=== PATIENT | female | born 1950 | race Caucasian/White ===

== ENCOUNTER 2016-12-08 01:55 | Observation (INO) | payer MEDICARE, MEDICAID ==
[2016-12-08] VITALS (10 sets, daily range): BP systolic 108–130; BP diastolic 64–77; PULSE 66–86; RESP 18–20; TEMP 96.2–97.8; O2SAT 95–99
[~2016-12-08] VITALS: Ht 172.7 cm; Wt 125.7 kg
[~2016-12-08 01:55] MED LIST: AMLO5 PO; COUM2TAB PO; FERR324T4 PO; FOLI400T PO; FURO40TA PO; ZOCO40TA PO
[2016-12-08] MEDS ORDERED: SODIUM CHLORIDE 0.9% FLUSH 10 ML FLUSH PRN (02:45)
[2016-12-08] MEDS ORDERED: METO-488 PO (04:39)
[2016-12-08] MEDS ORDERED: BUME0.5T PO (04:40)
[2016-12-08 05:00] LABS: CREATINE KINASE 47 U/L (26-192)
[2016-12-08] MEDS: PRAVASTATIN SOD 40 MG TAB PO SCH (08:39)
[2016-12-08] MEDS: FOLIC ACID 1 MG TAB PO SCH (08:39)
[2016-12-08] MEDS: FERROUS SULFATE 325 MG (65 MG ELEMENTAL IRON) TAB PO SCH (08:40)
[2016-12-08] MEDS: amLODIPine BESYLATE 5 MG TAB PO SCH (08:40)
--- NOTE | 2016-12-08 09:41 | HHI.HP ---
[facility] Unknown Admission Diagnosis Chest pain Diagnoses: (1) Epigastric pain Diagnosis: Principal (2) CHF (congestive heart failure) Diagnosis: Principal (3) A-fib Diagnosis: Principal (4) Subtherapeutic anticoagulation Diagnosis: Principal (5) Leg swelling Diagnosis: Principal (6) Hypokalemia Diagnosis: Principal Chief Complaint: body tight, dizzy Travel History International Travel<30 Days: No Contact w/Intl Traveler <30 Da: No Traveled to Known Affected Are: No History of Present Illness Written by Xochitl Will PA-C acting as scribe for Dr. Da Silva on 12/08/16 at ~ 0930. 66 year old female with history of coronary artery disease and hypertension was admitted to chest pain center. The patient is Urdu- speaking and an official concrete puddler was utilized. Her daughter who speaks Slovak also assists with history. The patient states that yesterday her body felt tight and she was dizzy and she had pain in her head and stomach and it radiated upward. She points to the lower chest/epigastric region as the site of pain stating it radiated to the back and she had a little bit of shortness of breath at that time. She denies any shortness of breath currently. She states the pain has been coming and going. She did not take anything for the pain at home. She states the feeling in the pit of her stomach is similar to prior [place]. States her headache is better now as she was given Dilaudid in the ED. She has chronic swelling in her legs. States the left leg is bothersome although denies pain. The patient recently moved from [place] 2 months ago and does not have a local lead java developer architect but she underwent CABG in February 2016 with 3 stents placed a couple of years ago. Apparently the patient was placed on warfarin for an issue with her leg but it is unclear if she actually had a DVT although daughter states she did have US performed in [place]. The patient has atrial fibrillation noted on EKGs but denies known history of this. Since the bypass patiently only admits to some soft tissue pain above the breast, no other chest pain. Denies any dysuria, diarrhea, constipation. Review of Systems Except as stated in HPI: all other systems reviewed are Neg Past Family Social History Past Medical History CAD Hypertension Anemia Possible lower extremity DVT Chronic leg swelling Past Surgical History CABG 02/2016 Cardiac stents x 3 Knee replacements 2-3 years ago Reported Medications Bumetanide 0.5 Mg Tab 0.5 Mg PO DAILY Metoprolol Succinate/HCTZ 50-12.5 ER 1 Tab Tab 1 Tab PO DAILY Furosemide 40 Mg Tab 40 Mg PO DAILY Folic Acid 400 Mcg Tab 400 Mcg PO DAILY Ferrous Sulfate DR (Ferrous Sulfate) 324 Mg Tabdr 324 Mg PO DAILY Zocor (Simvastatin) 40 Mg Tab 40 Mg PO DAILY Coumadin (Warfarin) 2 Mg Tab 2 Mg PO DAILY Norvasc (Amlodipine Besylate) 5 Mg Tab 5 Mg PO DAILY Allergies: Coded Allergies: No Known Allergies (Unverified , 12/07/16) Family History Father of GA in his 80's. Family history of DM, HTN, Cancer Social History Denies alcohol use, tobacco use, or illicit drug use. Physical Exam Vital Signs Vital Signs Date Time Temp Pulse Resp B/P Pulse Ox O2 Delivery O2 Flow Rate FiO2 12/08/16 08:24 97 Nasal Cannula 2.00 12/08/16 08:00 96.2 70 18 108/64 99 12/08/16 04:00 96.9 70 20 130/77 97 12/08/16 03:45 99 Nasal Cannula 4.00 12/08/16 02:15 70 Physical Exam GENERAL: This is a pleasant morbidly obese well-developed patient in no apparent distress. SKIN: No rashes, ecchymoses or lesions. Warm and dry. HEAD: Atraumatic. Normocephalic. EYES: No scleral icterus. No injection or drainage. CARDIOVASCULAR: Normal rate with irregularly irregular rhythm without murmurs, gallops, or rubs. RESPIRATORY: Clear to auscultation. Breath sounds equal bilaterally. No wheezes , rales, or rhonchi. GASTROINTESTINAL: Tender over epigastric and suprapubic region. Abdomen soft, nondistended. No guarding. MUSCULOSKELETAL: Trace edema right lower extremity. 1+ edema left lower extremity. Negative Homans sign bilaterally. NEUROLOGICAL: Awake and alert. Motor grossly within normal limits. Normal speech. PSYCHIATRIC: Normal mood; slightly flattened affect. Laboratory Laboratory Tests Test 12/08/16 03:55 Total Creatine Kinase 47 Troponin I LESS THAN 0.02 Imaging Last 24 hours Impressions Lower Extremity Ultrasound 12/08/16 0000 Signed Impressions: Service Date/Time: Thursday, December 08, 2016 10:02 - CONCLUSION: No evidence of DVT. Danial Maradiaga MD Assessment and Plan Assessment and Plan 66-year-old female with: Epigastric pain: Patient reports epigastric tenderness radiating to the back states the feeling in the "pit" of her stomach feels similar to prior [place]. EKGs 4 personally interpreted with atrial fibrillation rate controlled, incomplete right bundle branch block, prolonged QT interval; septal T wave changes likely related to to incomplete right bundle branch block. No other ischemic changes noted. Deep q waves in lead III on first EKG. Aorta CTA negative for dissection. H/o CABG 02/2016 in [place]. -Nitro prn if has chest pain -Pepcid 20 bid with Maalox as needed for possible dyspepsia. (Received viscous lidocaine, Maalox, and 40 Protonix IV in the ED). -Telemetry -Cardiology consult appreciated. Stress test pending. CHF: Chest x-ray personally interpreted with cardiomegaly and pulmonary vascular congestion. BNP 493. Lungs clear. H/o CABG 2015. -Continue home Lasix -Echo ordered A.Fib: Rate controlled on EKGs. Patient denies knowledge of having a history of A. fib. -Telemetry -Continue warfarin pending results of stress test. INR subtherapeutic. Pharmacy consulted to monitor. - continue therapeutic Lovenox. Leg swelling: Bilateral since CABG. Patient apparently had an ultrasound in [place] but it is unclear what that showed. D-dimer elevated. -Perform Doppler ultrasound bilaterally. Negative. Hypokalemia: 3.3. Given 40 mEq po KCl in ED. -Monitor BMP Chronic medical problems include hypertension, anemia, CAD: Continue home medications. DVT prophylaxis: On Lovenox, coumadin Patient is not chest pain center appropriate. Will be treated as regular medical patient. Discussed Condition With Pt, family, Dr. Acosta This note was transcribed by suhail Will. I, Dr. Edouard Da Silva personally performed the history, physical exam, and medical decision making; and confirmed the accuracy of the information in the transcribed note. Authenticated by Dr. Edouard Da Silva on 12/08/16 at 16:00. Xochitl Will December 08, 2016 09:41 Edouard Da Silva DO December 08, 2016 16:00
[2016-12-08] MEDS ORDERED: ALUMINUM/MAGNESIUM/SIMETH 30 ML CUP PO PRN (10:15)
[2016-12-08] MEDS ORDERED: NITROGLYCERIN 0.4 MG SL 25 TABS/BTL SL PRN (10:15)
--- NOTE | 2016-12-08 10:58 | RADHPO ---
EXAM DATE/TIME: 12/08/2016 10:02 [facility] COMPARISON: No previous studies available for comparison. INDICATIONS : Bilateral leg swelling and pain. MEDICAL HISTORY : Hypercholesterolemia. Hypertension. SURGICAL HISTORY : CABGCoronary artery stent. Cardiac cath. Bilateral knee replacement. ENCOUNTER: Initial ACUITY: 3 days PAIN SCORE: 4/10 LOCATION: Bilateral legs. TECHNIQUE: Venous ultrasound of the left and right leg was performed from the inguinal ligament to the proximal calf. Real-time, color Doppler and spectral tracing, compression and augmentation techniques were us ed. FINDINGS: RIGHT LEG: There is normal compressibility of the deep venous system from the inguinal region to the proximal ca lf. No echogenic clot is seen in the lumen of the common femoral, femoral, popliteal, and posterior tibial veins. There is a normal response of the venous system to proximal and distal augmentation an d respiration. LEFT LEG: There is normal compressibility of the deep venous system from the inguinal region to the proximal ca lf. No echogenic clot is seen in the lumen of the common femoral, femoral, popliteal, and posterior tibial veins. There is a normal response of the venous system to proximal and distal augmentation an d respiration. CONCLUSION: No evidence of DVT. Danial Maradiaga MD on December 08, 2016 at 10:56 Board Certified Radiologist. This report was verified electronically.
[2016-12-08] MEDS: FAMOTIDINE 20 MG TAB PO SCH ×2 (11:38→20:25)
[2016-12-08] MEDS: ENOXAPARIN SODIUM 150 MG/ML SYRINGE SQ SCH ×2 (11:38→20:26)
[2016-12-08] MEDS: SODIUM CHLORIDE 0.9% FLUSH 10 ML FLUSH IV FLUSH SCH ×2 (11:39→17:08)
--- NOTE | 2016-12-08 11:59 | EKG ---
Date Performed: 12/08/2016 Time Performed: 03:45:02 PTAGE: 66 years EKG: Atrial fibrillation with slow ventricular response Left axis deviation Right ventricular co nduction delay Inferior infarct - age undetermined Abnormal ECG NO PREVIOUS TRACING DOCTOR: Robbin Merritt Interpretating Date/Time 12/08/2016 11:59:51
--- NOTE | 2016-12-08 11:59 | EKG ---
Date Performed: 12/08/2016 Time Performed: 06:40:02 PTAGE: 66 years EKG: Atrial fibrillation Left axis deviation Right ventricular conduction delay Inferior infarct - age undetermined Abnormal ECG PREVIOUS TRACING : 12/08/2016 03.45 No significant change from previous tracing noted. DOCTOR: Robbin Merritt Interpretating Date/Time 12/08/2016 11:59:30
[2016-12-08] MEDS: FUROSEMIDE 40 MG/4 ML VIAL IV PUSH SCH ×2 (12:21→17:08)
--- NOTE | 2016-12-08 12:59 | EC ---
Study Study Date:12/08/2016 STUDY CONCLUSIONS SUMMARY - Left ventricle: The cavity size was normal. Systolic function was at the lower limits of normal. The estimated ejection fraction was in the range of 50% to 55%. Possible akinesis of the distal anteroseptal myocardium. - Mitral valve: Mild to moderate regurgitation. - Left atrium: The atrium was mildly dilated. - Tricuspid valve: Mild regurgitation. If LV function is below 40, please consider prescribing an ACEI or ARB or document rationale for non-use. PROCEDURE DATA STUDY STATUS: Elective. Procedure: Transthoracic echocardiography. Image quality was fair. The study was technically limited due to poor acoustic window availability. Scanning was performed from the parasternal, apical, and subcostal acoustic windows. Study completion: The patient tolerated the procedure well. Transthoracic echocardiography. M-mode, complete 2D, complete spectral Doppler, and color Doppler. Patient status: Inpatient. CARDIAC ANATOMY LEFT VENTRICLE: The cavity size was normal. Systolic function was at the lower limits of normal. The estimated ejection fraction was in the range of 50% to 55%. Regional wall motion abnormalities: Possible akinesis of the distal anteroseptal myocardium. AORTIC VALVE: Trileaflet. Doppler: There was no stenosis. No significant regurgitation. Valve area: 2.75cm^2 (Vmax). MITRAL VALVE: The valve appears to be grossly normal. Doppler: There was no evidence for stenosis. Mild to moderate regurgitation. Peak gradient: 6mm Hg (D). LEFT ATRIUM: The atrium was mildly dilated. PULMONIC VALVE: Not visualized. TRICUSPID VALVE: The valve appears to be grossly normal. Doppler: There was no evidence for stenosis. Mild regurgitation. PERICARDIUM: There was no pericardial effusion. BASIC MEASUREMENTS ADULT NORMAL Left ventricle LV internal dimension, ED, chordal level, 50.1 mm 43-52 PLAX LV internal dimension, ES, chordal level, *38.8 mm 23-38 PLAX Fractional shortening, chordal level, PLAX *23 % >29 LV posterior wall thickness, ED 10.5 mm IVS/LVPW ratio, ED 0.96 <1.3 Ventricular septum Septal thickness, ED 10.1 mm Aortic valve Leaflet separation 23 mm 15-26 BASIC MEASUREMENTS ADULT NORMAL Aortic valve Leaflet separation 23 mm 15-26 Aorta Root diameter, ED 37 mm 20-37 Left atrium Anterior-posterior dimension, ES *41 mm 19-40 LA/aortic root ratio 1.11 DOPPLER MEASUREMENTS ADULT NORMAL Main pulmonary artery Pressure, S 27 mm Hg =30 Aortic valve Peak velocity, S 133 cm/s Valve area, Vmax 2.75 cm^2 Mitral valve Peak E-wave velocity 119 cm/s Peak A-wave velocity 44.9 cm/s Deceleration time 194 ms 150-230 Peak gradient, D 6 mm Hg Peak E/A ratio 2.7 Maximal regurgitant velocity 447 cm/s Tricuspid valve Regurgitant peak velocity 224 cm/s Peak RV-RA gradient, S 20 mm Hg Maximal regurgitant velocity 224 cm/s Systemic veins Estimated CVP 10 mm Hg Right ventricle RV pressure, S *30 mm Hg <30 Pulmonic valve Peak velocity, S 88.2 cm/s LEGEND: Mean values are shown as u=mean value. Asterisk (*) loza values outside specified normal range. Prepared and signed by Jacinto Acosta [id number]
[2016-12-08 13:00] LABS: INTERNATIONAL NORMALIZED RATIO 1.5 RATIO; PROTHROMBIN TIME - PATIENT 16.7 SEC (9.8-11.6)
[2016-12-08] MEDS ORDERED: WARFARIN SOD 2 MG TAB PO SCH (16:00)
--- NOTE | 2016-12-08 16:00 | MB ---
cc: JACINTO VILLARREAL DO DATE OF CONSULTATION 12/08/2016 REASON FOR CONSULTATION Atrial fibrillation, possible chest pain, congestive heart failure. HISTORY OF PRESENT ILLNESS Shaniqua Mehta is a pleasant 66-year-old female who originally presented to [facility] emergency room on December 07, 2016 due to epigastric pain. The patient is Tunisian-speaking and her daughter is translating for her. It appears that on Tuesday December 06, 2016 she had some epigastric pain which she associated with her reflux. This went away over time and then on Wednesday she started having, what she considered, abdominal pain / epigastric pain that radiated around the left side and towards her back. She did say that she was somewhat short of breath from this. It is difficult to ascertain if this was similar to a previous episode that led to her CABG. Per her daughter she has three stents placed a number of years ago and then underwent coronary artery bypass grafting and in [place] in February of 2016. She was also placed on Coumadin which was felt to be due to a possible clot in her leg but they are unsure. She was also found to be in atrial fibrillation while here which her and her daughter have no idea about previously. Since moving here from [place] 2 months ago she has no one following her INR. PAST MEDICAL HISTORY 1. Coronary artery disease. 2. Hypertension. 3. Anemia. 4. Possible lower extremity DVT. PAST SURGICAL HISTORY 1. Coronary artery bypass grafting (February 2016, unknown coronary anatomy) while in [place]. 2. Three previous cardiac stents placed to unknown vessels. 3. Knee replacement [id number] years ago. ALLERGIES NO KNOWN DRUG ALLERGIES. MEDICATIONS 1. Coumadin 2 mg daily. 2. Metoprolol succinate / hydrochlorothiazide 50 / 12.5 mg daily. 3. Norvasc 5 mg daily. 4. Zocor 40 mg daily. 5. Iron 324 mg daily. 6. Bumex 0.5 mg daily. 7. Lasix 40 mg daily. 8. Folic acid 400 mcg daily. FAMILY HISTORY Father of a myocardial infarction in his 80s. There is a family history of diabetes, hypertension and cancer. Denies sudden cardiac within the family. SOCIAL HISTORY Denies alcohol, tobacco or illicit drug abuse. REVIEW OF SYSTEMS 14 systems reviewed as above, pertinent positives and negatives above otherwise negative PHYSICAL EXAMINATION VITAL SIGNS: Temperature 96.2, heart rate 70, blood pressure 108/64, respirations 18, pulse ox 97% on 2 liters. GENERAL: In general the patient appears well in no acute distress, alert, awake and oriented x3. HEENT: Extraocular muscles intact. Mucous membranes moist. NECK: Supple. No JVD at 45 degrees. No carotid bruits heard bilaterally. Carotid upstrokes brisk in nature. CARDIOVASCULAR: Heart is regular rate and rhythm. Positive first and second heart sounds with no noted murmurs, gallops or rubs. PMI is difficult to ascertain due to body habitus. LUNGS: Have decreased breath sounds bilaterally but no overt wheezes, rales or rhonchi. ABDOMEN: Soft, nontender, nondistended. No organomegaly noted. EXTREMITIES: Show 1+ pitting edema bilaterally. NEUROLOGIC: No focal deficits. SKIN: Warm, dry and intact. OSTEOPATHIC: No kyphoscoliosis, scoliosis. Mild lordosis. No paraspinal tender points. LABORATORY FINDINGS Hemoglobin 11.0, hematocrit 35.8, platelets 221. INR 1.4. Troponin negative times four. Potassium 3.3, BUN 12, creatinine 0.7. Electrocardiogram (December 07, 2016 at 2252) atrial fibrillation with controlled ventricular response, incomplete right bundle branch block, possible old inferior NH. IMPRESSION 1. Atypical chest pain. 2. Epigastric pain. 3. Mild congestive heart failure, acute versus chronic. 4. Atrial fibrillation currently on anticoagulation with Coumadin although this may be questionable for a DVT in her leg, unsure if atrial fibrillation is new, paroxysmal or chronic in nature. 5. Coronary artery disease with a history of coronary artery bypass grafting. 6. Subtherapeutic INR. 7. History of hypertension. RECOMMENDATIONS 1. The patient does have atypical chest pain but with her history of coronary artery bypass grafting, I feel that she should undergo an ischemic evaluation with a pharmacologic nuclear stress test. Will plan on doing this today and if it is positive Coumadin will be held and she will need to be transferred to the main hospital for consideration of coronary visualization. 2. We will check an echo to look at her overall left ventricular function, cardiac structure and possible valvopathies. 3. As far as her atrial fibrillation goes, if stress testing is negative, she should continue with Lovenox with a transition to Coumadin. Her [id number] score is 4 and because of this elevation most likely should continue in the hospital until INR is at therapeutic levels. 4. As far as her INR goes, she does need to have a primary care physician in the area to follow her levels. 5. If stress test is negative for ischemia, we will plan on having her discharged from a cardiovascular standpoint once INR is at a therapeutic level. 6. Her atrial fibrillation is currently controlled on her metoprolol, we will plan on continuing. 7. As far as diuresis it appears that she was on both Lasix and Bumex for an unknown reason. We will plan on placing her on Lasix on discharge. Thank you for allowing me to see Shaniqua Mehta. If there are any questions please do not hesitate to call. Jacinto Villarreal DO VGP/KK /11:42 AM /7:53 AM MTDD
[2016-12-09] VITALS (10 sets, daily range): BP systolic 111–147; BP diastolic 68–83; PULSE 74–90; RESP 15–20; TEMP 96.2–98.9; O2SAT 95–99
[2016-12-09 06:54] LABS: HEMATOCRIT 34.3 % (35.0-46.0); MEAN CELL VOLUME 86.3 FL (80.0-100.0); MEAN CORPUSCULAR HEMOGLOBIN 27.6 PG (27.0-34.0); PLATELET COUNT 227 TH/MM3 (150-450); RED BLOOD COUNT 3.97 MIL/MM3 (4.00-5.30); RED CELL DISTRIBUTION WIDTH 14.6 % (11.6-17.2); REVIEW FLAG FINAL; WHITE BLOOD COUNT 5.3 TH/MM3 (4.0-11.0)
[2016-12-09 07:16] LABS: INTERNATIONAL NORMALIZED RATIO 1.4 RATIO; PROTHROMBIN TIME - PATIENT 16.1 SEC (9.8-11.6)
[2016-12-09 07:25] LABS: BICARBONATE 34.7 MEQ/L (21.0-32.0)
[2016-12-09] MEDS ORDERED: POTASSIUM CHLORIDE 10 MEQ CONTROLLED RELEASE TAB PO ONE (08:00)
[2016-12-09] MEDS: PRAVASTATIN SOD 40 MG TAB PO SCH (08:35)
[2016-12-09] MEDS: amLODIPine BESYLATE 5 MG TAB PO SCH (08:35)
[2016-12-09] MEDS: FERROUS SULFATE 325 MG (65 MG ELEMENTAL IRON) TAB PO SCH (08:36)
[2016-12-09] MEDS: FOLIC ACID 1 MG TAB PO SCH (08:36)
[2016-12-09] MEDS: FAMOTIDINE 20 MG TAB PO SCH ×2 (08:36→23:02)
[2016-12-09] MEDS ORDERED: POTASSIUM CHLORIDE 20 MEQ CONTROLLED RELEASE TAB PO ONE (09:00)
[2016-12-09] MEDS ORDERED: PNEUMOCOCCAL POLYVALENT INJ 25 MCG/0.5 ML SYR IM ONE (09:00)
[2016-12-09] MEDS ORDERED: POTASSIUM CHLORIDE 20 MEQ CONTROLLED RELEASE TAB PO SCH (10:00)
--- NOTE | 2016-12-09 10:19 | RADHPO ---
EXAM DATE/TIME: 12/08/2016 14:18 [facility] COMPARISON: No previous studies available for comparison. INDICATIONS : Substernal chest pain with prior cardiac stenting and CABG. Abnormal EKG. Angina. DOSE: 30 mCi Tc99m Myoview at stress. 30.1 mCi Tc99m Myoview at rest. 0.4 mg Lexiscan STRESS SYMPTOMS: Heart racing. EJECTION FRACTION: 55% MEDICAL HISTORY : Hypertension. SURGICAL HISTORY : CABG Coronary artery stent. Knee replacement. ENCOUNTER: Initial ACUITY: 1 day PAIN SCALE: 6/10 LOCATION: Substernal chest TECHNIQUE: The patient underwent pharmacologic stress with infusion of prescribed dose. Continuous ECG tracing was monitored during stress. Gated SPECT imaging was performed after stress and conventional SPECT i maging was performed at rest. The examination was performed on a SPECT/CT scanner, both attenuation and non-corrected datasets were reviewed. FINDINGS: DISTRIBUTION: The maximum perfused segment at stress is in the inferior wall. PERFUSION STUDY: Moderate sized moderate severity fixed perfusion defect of the distal septal wall. No reversible perf usion defect identified. GATED STUDY: Moderate severity hypokinesis of the distal septal wall. CONCLUSION: 1. No reversible perfusion defects. 2. Moderate severity hypokinesis and fixed perfusion defect of the distal septal wall. RISK CATEGORY: 1 - Low Risk. Donald Montalvo MD on December 09, 2016 at 10:07 Board Certified Radiologist. This report was verified electronically.
--- NOTE | 2016-12-09 10:26 | HHI.PR ---
Subjective Remarks Follow-up CAD and heart failure. Patient interviewed with the help of marixa learning operations specialist. Patient has no complaints denies chest pain, palpitations and shortness of breath. Coumadin teaching provided Objective Vitals Vital Signs Date Time Temp Pulse Resp B/P Pulse Ox O2 Delivery O2 Flow Rate FiO2 12/09/16 08:31 97.9 83 15 147/82 96 12/09/16 04:00 98.6 90 20 128/68 98 12/09/16 00:00 98.9 78 20 114/72 97 12/08/16 22:10 95 21 12/08/16 20:00 97.8 86 20 112/65 98 12/08/16 20:00 75 12/08/16 16:00 77 12/08/16 16:00 97.5 74 19 120/74 97 12/08/16 12:00 97.8 82 20 112/70 95 I/O 12/08/16 12/08/16 12/08/16 12/09/16 12/09/16 12/09/16 07:00 15:00 23:00 07:00 15:00 23:00 Intake Total 240 ml 0 ml 240 ml Balance 240 ml 0 ml 240 ml Intake Oral 240 ml 0 ml 240 ml # Voids 4 4 10 # Bowel Movements 1 0 1 Result Diagram: 12/09/16 0615 12/09/16 0615 Imaging Last Impressions Lower Extremity Ultrasound 12/08/16 0000 Signed Impressions: Service Date/Time: Thursday, December 08, 2016 10:02 - CONCLUSION: No evidence of DVT. Danial Maradiaga MD Objective Remarks GENERAL: This is a pleasant morbidly obese well-developed patient in no apparent distress. SKIN: No rashes, ecchymoses or lesions. Warm and dry. HEAD: Atraumatic. Normocephalic. EYES: No scleral icterus. No injection or drainage. CARDIOVASCULAR: Normal rate with irregularly irregular rhythm without murmurs, gallops, or rubs. RESPIRATORY: Clear to auscultation. Breath sounds equal bilaterally. No wheezes , rales, or rhonchi. GASTROINTESTINAL: Nontender. Abdomen soft, nondistended. No guarding. MUSCULOSKELETAL: Trace edema right lower extremity. Improving edema left lower extremity. Negative Homans sign bilaterally. NEUROLOGICAL: Awake and alert. Motor grossly within normal limits. Normal speech. PSYCHIATRIC: Normal mood; slightly flattened affect. Procedures None A/P Problem List: (1) Epigastric pain ICD Code: R10.13 Status: Acute (2) CHF (congestive heart failure) ICD Code: I50.9 Status: Acute (3) A-fib ICD Code: I48.91 Status: Acute (4) Subtherapeutic anticoagulation ICD Code: Z51.81 Status: Acute (5) Leg swelling ICD Code: M79.89 Status: Acute (6) Hypokalemia ICD Code: E87.6 Status: Acute Assessment and Plan 66-year-old female with: Epigastric pain: Patient reports epigastric tenderness radiating to the back states the feeling in the "pit" of her stomach feels similar to prior [place]. EKGs 4 personally interpreted with atrial fibrillation rate controlled, incomplete right bundle branch block, prolonged QT interval; septal T wave changes likely related to to incomplete right bundle branch block. No other ischemic changes noted. Deep q waves in lead III on first EKG. Aorta CTA negative for dissection. H/o CABG 02/2016 in [place]. -Nitro prn if has chest pain -Pepcid 20 bid with Maalox as needed for possible dyspepsia. (Received viscous lidocaine, Maalox, and 40 Protonix IV in the ED). -Telemetry -Cardiology consult appreciated. For Lexiscan today. Restart Lopressor Acute on chronic CHF secondary to A. fib and MR: Chest x-ray personally interpreted with cardiomegaly and pulmonary vascular congestion. BNP 493. Lungs clear. H/o CABG 2015. -Continue IV Lasix and monitor renal function -Echo with preserved systolic function A.Fib: Rate controlled on EKGs. Patient denies knowledge of having a history of A. fib. EITAN 2 DS VASC score of 4 -Telemetry -Continue warfarin pending results of stress test. INR subtherapeutic. Pharmacy consulted to monitor. -continue therapeutic Lovenox for bridging. Leg swelling: Bilateral since CABG. Patient apparently had an ultrasound in [place] but it is unclear what that showed. D-dimer elevated. -Perform Doppler ultrasound bilaterally. Negative. Improving on diuresis Hypokalemia: Worse secondary to diuresis. Start 50 mEq potassium then 20 mg twice a day -Monitor BMP Chronic medical problems include hypertension, anemia, CAD: Continue home medications. DVT prophylaxis: On Lovenox, coumadin Discharge Planning Per cardiology transfer to [facility] if positive stress test otherwise home when INR therapeutic. We will consult case management for outpatient Kevin Ochoa MD December 09, 2016 10:26
[2016-12-09] MEDS: METOPROLOL TARTRATE 25 MG TAB PO SCH ×2 (11:15→23:02)
[2016-12-09] MEDS: SODIUM CHLORIDE 0.9% FLUSH 10 ML FLUSH IV FLUSH SCH ×2 (11:15→23:02)
[2016-12-09] MEDS: FUROSEMIDE 40 MG/4 ML VIAL IV PUSH SCH ×2 (11:15→17:10)
[2016-12-09] MEDS: ENOXAPARIN SODIUM 150 MG/ML SYRINGE SQ SCH ×2 (11:33→22:00)
--- NOTE | 2016-12-09 12:56 | PD.CARD.PN ---
Subjective Subjective Remarks Translated through her daughter Doing well, no chest pain, no shortness of breath Objective Medications Current Medications Medications (Trade) Dose Ordered Sig/Cameron Route Start Time Stop Time Status Last Admin (NS Flush) 2 ml UNSCH PRN .XX 12/08/16 02:45 (NS Flush) 2 ml BID IV FLUSH 12/08/16 09:00 12/09/16 11:15 (Lasix Inj) 40 mg BID@09,18 IV PUSH 12/08/16 09:00 12/09/16 11:15 (Norvasc) 5 mg DAILY PO 12/08/16 09:00 12/09/16 08:35 (Folate) 1 mg DAILY PO 12/08/16 09:00 12/09/16 08:36 (Ferrous Sulfate) 325 mg DAILY PO 12/08/16 09:00 12/09/16 08:36 (Pravachol) 80 mg DAILY PO 12/08/16 09:00 12/09/16 08:35 (Lovenox Inj) 130 mg Q12H SQ 12/08/16 10:00 12/09/16 11:33 (Pepcid) 20 mg BID PO 12/08/16 11:00 12/09/16 08:36 (Nitrostat Sl) 0.4 mg Q5M PRN SL 12/08/16 10:15 (Mag-Al Plus Susp Liq) 30 ml Q6H PRN PO 12/08/16 10:15 Warfarin Sodium 2 mg 2 mg DAILY@16 PO 12/08/16 16:00 UNV (Coumadin Consult Pharmacy) 0 ml @ 0 mls/hr UNSCH OTHER 12/08/16 10:30 (Lopressor) 25 mg Q12HR PO 12/09/16 09:00 12/09/16 11:15 (KCl) 20 meq Q12HR PO 12/09/16 21:00 Vital Signs / I&O Vital Signs Date Time Temp Pulse Resp B/P Pulse Ox O2 Delivery O2 Flow Rate FiO2 12/09/16 12:22 97.0 76 15 138/77 95 12/09/16 11:13 74 18 116/78 12/09/16 08:31 97.9 83 15 147/82 96 12/09/16 04:00 98.6 90 20 128/68 98 12/09/16 00:00 98.9 78 20 114/72 97 12/08/16 22:10 95 21 12/08/16 20:00 97.8 86 20 112/65 98 12/08/16 20:00 75 12/08/16 16:00 77 12/08/16 16:00 97.5 74 19 120/74 97 I/O 12/08/16 12/08/16 12/08/16 12/09/16 12/09/16 12/09/16 07:00 15:00 23:00 07:00 15:00 23:00 Intake Total 240 ml 0 ml 240 ml 100 ml Balance 240 ml 0 ml 240 ml 100 ml Intake Oral 240 ml 0 ml 240 ml 100 ml # Voids 4 4 10 # Bowel Movements 1 0 1 Physical Exam GENERAL: NAD, sitting up in the chair SKIN: Warm and dry. HEAD: Atraumatic. Normocephalic. EYES: Pupils equal and round. No scleral icterus. No injection or drainage. ENT: No nasal bleeding or discharge. Mucous membranes pink and moist. NECK: Trachea midline. No JVD. CARDIOVASCULAR: Irregularly irregular RESPIRATORY: No accessory muscle use. Clear to auscultation. Breath sounds equal bilaterally. GASTROINTESTINAL: Abdomen soft, non-tender, nondistended. Hepatic and splenic margins not palpable. MUSCULOSKELETAL: Extremities without clubbing, cyanosis, or edema. No obvious deformities. NEUROLOGICAL: Awake and alert. No obvious cranial nerve deficits. Motor grossly within normal limits. Five out of 5 muscle strength in the arms and legs. Normal speech. PSYCHIATRIC: Appropriate mood and affect; insight and judgment normal. Laboratory Laboratory Tests Test 12/09/16 06:15 White Blood Count 5.3 TH/MM3 Red Blood Count 3.97 MIL/MM3 Hemoglobin 11.0 GM/DL Hematocrit 34.3 % Mean Corpuscular Volume 86.3 FL Mean Corpuscular Hemoglobin 27.6 PG Mean Corpuscular Hemoglobin 32.0 % Concent Red Cell Distribution Width 14.6 % Platelet Count 227 TH/MM3 Mean Platelet Volume 8.0 FL Prothrombin Time 16.1 SEC Prothromb Time International 1.4 RATIO Ratio Sodium Level 142 MEQ/L Potassium Level 3.0 MEQ/L Chloride Level 102 MEQ/L Carbon Dioxide Level 34.7 MEQ/L Anion Gap 5 MEQ/L Blood Urea Nitrogen 11 MG/DL Creatinine 0.63 MG/DL Estimat Glomerular Filtration 95 ML/MIN Rate Random Glucose 88 MG/DL Calcium Level 8.6 MG/DL Magnesium Level 2.0 MG/DL Assessment and Plan Problem List: (1) Epigastric pain (2) Chest pain (3) History of coronary artery disease (4) A-fib (5) Leg swelling (6) Subtherapeutic anticoagulation Assessment and Plan 1) Doing well, no chest pain 2) EF 50-55%, mild to moderate MR, mild TR 3) Stress test showing no ischemia, possible infarction of distal septal wall which correlates with echo wall motion 4) Continue medical management 5) Subtherapeutic INR, restart Coumadin tonight, needs follow-up outpatient with PCP for INR checks 6) Heart rates controlled 7) Diuresed well 8) Cardiovascularly stable for discharge when INR greater than 2.0 or if Lovenox can be given at home 9) Will see PRN, call with questions Jacinto Acosta DO December 09, 2016 12:56
[2016-12-09] MEDS ORDERED: WARFARIN SOD 2 MG TAB PO ONE (16:00)
[2016-12-09] MEDS: POTASSIUM CHLORIDE 20 MEQ CONTROLLED RELEASE TAB PO SCH (23:01)
[2016-12-10] VITALS: BP 107/70; PULSE 67; RESP 20; TEMP 98.6; O2SAT 98
[2016-12-10 04:00] VITALS: BP 108/68; PULSE 78; RESP 20; TEMP 98.2; O2SAT 98
[2016-12-10 06:45] LABS: POTASSIUM 3.7 MEQ/L (3.5-5.1)
[2016-12-10 06:52] LABS: BICARBONATE 33.6 MEQ/L (21.0-32.0); MAGNESIUM 2.1 MG/DL (1.5-2.5)
[2016-12-10 06:56] LABS: INTERNATIONAL NORMALIZED RATIO 1.3 RATIO; PROTHROMBIN TIME - PATIENT 14.3 SEC (9.8-11.6)
[2016-12-10 08:00] VITALS: BP 119/72; PULSE 70; RESP 17; TEMP 97.9; O2SAT 95
[2016-12-10] MEDS: ENOXAPARIN SODIUM 150 MG/ML SYRINGE SQ SCH ×2 (10:00→22:05)
--- NOTE | 2016-12-10 10:51 | HHI.PR ---
Subjective Remarks F/u anticoagulation. Translated by Jackie. Discussed with daughter who is a nurse, pt's RN and CM. anticoagulation discussed with patient and daughter. They don't want novel agents. Echocardiogram also shows MRHerson Patient has no complaints denies chest pain, palpitations and shortness of breath. No bleeding. She is ambulating. She is stable for discharge when INR is therapeutic or Lovenox can be arranged outpatient. Her daughter is willing to administer Lovenox Objective Vitals Vital Signs Date Time Temp Pulse Resp B/P Pulse Ox O2 Delivery O2 Flow Rate FiO2 12/10/16 08:00 97.9 70 17 119/72 95 12/10/16 04:00 98.2 78 20 108/68 98 12/10/16 00:00 98.6 67 20 107/70 98 12/09/16 21:12 99 21 12/09/16 21:00 82 12/09/16 19:34 96.2 77 20 135/83 96 12/09/16 17:06 96.9 76 16 111/73 98 12/09/16 12:22 97.0 76 15 138/77 95 12/09/16 11:13 74 18 116/78 I/O 12/09/16 12/09/16 12/09/16 12/10/16 12/10/16 12/10/16 07:00 15:00 23:00 07:00 15:00 23:00 Intake Total 240 ml 400 ml 210 ml 420 ml Balance 240 ml 400 ml 210 ml 420 ml Intake Oral 240 ml 400 ml 210 ml 420 ml # Voids 10 3 2 # Bowel Movements 1 1 Result Diagram: 12/09/16 0615 12/10/16 0615 Imaging Last Impressions Myocardial Perfusion Scan Nuc Med 12/08/16 0000 Signed Impressions: Service Date/Time: Thursday, December 08, 2016 14:18 - CONCLUSION: 1. No reversible perfusion defects. 2. Moderate severity hypokinesis and fixed perfusion defect of the distal septal wall. RISK CATEGORY: 1 - Low Risk. Donald Montalvo MD Lower Extremity Ultrasound 12/08/16 0000 Signed Impressions: Service Date/Time: Thursday, December 08, 2016 10:02 - CONCLUSION: No evidence of DVT. Danial Maradiaga MD Objective Remarks GENERAL: This is a pleasant morbidly obese well-developed patient in no apparent distress. SKIN: No rashes, ecchymoses or lesions. Warm and dry. HEAD: Atraumatic. Normocephalic. EYES: No scleral icterus. No injection or drainage. CARDIOVASCULAR: Normal rate with irregularly irregular rhythm without murmurs, gallops, or rubs. RESPIRATORY: Clear to auscultation. Breath sounds equal bilaterally. No wheezes , rales, or rhonchi. GASTROINTESTINAL: Nontender. Abdomen soft, nondistended. No guarding. MUSCULOSKELETAL: Trace edema right lower extremity. Improving edema left lower extremity. Negative Homans sign bilaterally. NEUROLOGICAL: Awake and alert. Motor grossly within normal limits. Normal speech. PSYCHIATRIC: Normal mood; Procedures None A/P Problem List: (1) Epigastric pain ICD Code: R10.13 Status: Acute (2) CHF (congestive heart failure) ICD Code: I50.9 Status: Acute (3) A-fib ICD Code: I48.91 Status: Acute (4) Subtherapeutic anticoagulation ICD Code: Z51.81 Status: Acute (5) Leg swelling ICD Code: M79.89 Status: Acute (6) Hypokalemia ICD Code: E87.6 Status: Acute Assessment and Plan 66-year-old female with: Epigastric pain: Patient reports epigastric tenderness radiating to the back states the feeling in the "pit" of her stomach feels similar to prior [place]. EKGs 4 personally interpreted with atrial fibrillation rate controlled, incomplete right bundle branch block, prolonged QT interval; septal T wave changes likely related to to incomplete right bundle branch block. No other ischemic changes noted. Deep q waves in lead III on first EKG. Aorta CTA negative for dissection. H/o CABG 02/2016 in [place]. -Nitro prn if has chest pain -Pepcid 20 bid with Maalox as needed for possible dyspepsia. (Received viscous lidocaine, Maalox, and 40 Protonix IV in the ED). -Telemetry -Cardiology consult appreciated. Negative Lexiscan. Continue Lopressor Acute on chronic CHF secondary to A. fib and MR: Chest x-ray personally interpreted with cardiomegaly and pulmonary vascular congestion. BNP 493. Lungs clear. H/o CABG 2015. -Improved switch to by mouth Lasix and monitor renal function -Echo with preserved systolic function A.Fib: Rate controlled on EKGs. Patient denies knowledge of having a history of A. fib. EITAN 2 DS VASC score of 4 -Telemetry -Continue warfarin. INR subtherapeutic. Pharmacy consulted to monitor. -continue therapeutic Lovenox for bridging. Leg swelling: Bilateral since CABG. Patient apparently had an ultrasound in [place] but it is unclear what that showed. D-dimer elevated. -Perform Doppler ultrasound bilaterally. Negative. Improving on diuresis Hypokalemia: Improved. Continue 20 mg twice a day -Monitor BMP Chronic medical problems include hypertension, anemia, CAD: Continue home medications. DVT prophylaxis: On Lovenox, coumadin Discharge Planning Stable for discharge when INR therapeutic or outpatient Lovenox can be arranged. Discussed with case management, needs prior approval. Request Form has been completed by me. I spent 35 minutes [id number] with the patient or on the molina discussing the patient's disposition, prognosis, and plan of care with patient's caregivers. Over half the time spent was devoted to counseling the patient regarding placement in coordinating care with caregivers and case management. Kevin Ravi MD Dec 10, 2016 10:50
[2016-12-10] MEDS: amLODIPine BESYLATE 5 MG TAB PO SCH (11:02)
[2016-12-10] MEDS: PRAVASTATIN SOD 40 MG TAB PO SCH (11:02)
[2016-12-10] MEDS: FOLIC ACID 1 MG TAB PO SCH (11:02)
[2016-12-10] MEDS: FERROUS SULFATE 325 MG (65 MG ELEMENTAL IRON) TAB PO SCH (11:02)
[2016-12-10] MEDS: METOPROLOL TARTRATE 25 MG TAB PO SCH (11:03)
[2016-12-10] MEDS: POTASSIUM CHLORIDE 20 MEQ CONTROLLED RELEASE TAB PO SCH ×2 (11:03→21:00)
[2016-12-10] MEDS: SODIUM CHLORIDE 0.9% FLUSH 10 ML FLUSH IV FLUSH SCH (11:03)
[2016-12-10] MEDS: FUROSEMIDE 40 MG/4 ML VIAL IV PUSH SCH (11:03)
[2016-12-10] MEDS: FAMOTIDINE 20 MG TAB PO SCH ×2 (11:04→22:06)
[2016-12-10] MEDS ORDERED: ENOX150P SQ (11:50)
[2016-12-10] MEDS ORDERED: FAMO20TA2 PO (11:50)
[2016-12-10] MEDS ORDERED: COUM3TAB PO (11:50)
[2016-12-10] MEDS ORDERED: POTA20TA5 PO (11:50)
[2016-12-10] MEDS ORDERED: METO25TA3 PO (11:50)
--- NOTE | 2016-12-10 11:51 | HHI.DCPOC ---
Discharge Care Plan Diagnosis: (1) Chest pain (2) A-fib Your Health Problems Are: Difficulty with ADL Exercise Tolerance Goals to Promote Your Health * To prevent worsening of your condition and complications * To maintain your health at the optimal level Directions to Meet Your Goals Take your medications as prescribed Follow your dietary instruction Follow activity as directed Keep your appointments as scheduled Take your immunizations and boosters as scheduled If your symptoms worsen call your PCP, if no PCP go to Urgent Care Center or Emergency Room Smoking is Dangerous to Your Health. Avoid second hand smoke Call the 24-hour hour crisis hotline for domestic abuse at Kevin Ravi MD Dec 10, 2016 11:51
[2016-12-10 12:00] VITALS: BP 116/71; PULSE 62; RESP 18; TEMP 97.5; O2SAT 99
[2016-12-10] MEDS ORDERED: WARFARIN SOD 3 MG TAB PO ONE (16:00)
[2016-12-10] MEDS ORDERED: WARFARIN SOD 2 MG TAB PO SCH (16:00)
--- NOTE | 2016-12-10 18:43 | HHI.DS ---
Discharge Summary Admission Date December 08, 2016 at 02:00 Discharge Date: Dec 10, 2016 Admitting Diagnosis Chest pain (1) Epigastric pain ICD Code: R10.13 Diagnosis: Principal (2) CHF (congestive heart failure) ICD Code: I50.9 Diagnosis: Principal (3) A-fib ICD Code: I48.91 Diagnosis: Principal (4) Subtherapeutic anticoagulation ICD Code: Z51.81 Diagnosis: Principal (5) Leg swelling ICD Code: M79.89 Diagnosis: Principal (6) Hypokalemia ICD Code: E87.6 Diagnosis: Principal Procedures None Brief History - From Admission Written by Xochitl Will PA-C acting as scribe for Dr. Da Silva on 12/08/16 at ~ 0930. 66 year old female with history of coronary artery disease and hypertension was admitted to chest pain center. The patient is [place]an- speaking and an official senior sharepoint developer was utilized. Her daughter who speaks Occitan also assists with history. The patient states that yesterday her body felt tight and she was dizzy and she had pain in her head and stomach and it radiated upward. She points to the lower chest/epigastric region as the site of pain stating it radiated to the back and she had a little bit of shortness of breath at that time. She denies any shortness of breath currently. She states the pain has been coming and going. She did not take anything for the pain at home. She states the feeling in the pit of her stomach is similar to prior [place]. States her headache is better now as she was given Dilaudid in the ED. She has chronic swelling in her legs. States the left leg is bothersome although denies pain. The patient recently moved from [place] 2 months ago and does not have a local trademark affixer but she underwent CABG in February 2016 with 3 stents placed a couple of years ago. Apparently the patient was placed on warfarin for an issue with her leg but it is unclear if she actually had a DVT although daughter states she did have US performed in [place]. The patient has atrial fibrillation noted on EKGs but denies known history of this. Since the bypass patiently only admits to some soft tissue pain above the breast, no other chest pain. Denies any dysuria, diarrhea, constipation. CBC/BMP: 12/09/16 0615 12/10/16 0615 Significant Findings Laboratory Tests Test 12/08/16 12/08/16 12/09/16 12/10/16 03:55 12:25 06:15 06:15 Troponin I LESS THAN 0.02 NG/ML (0.02-0.05) Prothrombin Time 16.7 SEC 16.1 SEC 14.3 SEC (9.8-11.6) (9.8-11.6) (9.8-11.6) Red Blood Count 3.97 MIL/MM3 (4.00-5.30) Hemoglobin 11.0 GM/DL (11.6-15.3) Hematocrit 34.3 % (35.0-46.0) Potassium Level 3.0 MEQ/L (3.5-5.1) Carbon Dioxide Level 34.7 MEQ/L 33.6 MEQ/L (21.0-32.0) (21.0-32.0) Estimat Glomerular Filtration 85 ML/MIN (>89) Rate Imaging Last Impressions Myocardial Perfusion Scan Nuc Med 12/08/16 0000 Signed Impressions: Service Date/Time: Thursday, December 08, 2016 14:18 - CONCLUSION: 1. No reversible perfusion defects. 2. Moderate severity hypokinesis and fixed perfusion defect of the distal septal wall. RISK CATEGORY: 1 - Low Risk. Donald Montalvo MD Lower Extremity Ultrasound 12/08/16 0000 Signed Impressions: Service Date/Time: Thursday, December 08, 2016 10:02 - CONCLUSION: No evidence of DVT. Danial Maradiaga MD PE at Discharge GENERAL: This is a pleasant morbidly obese well-developed patient in no apparent distress. SKIN: No rashes, ecchymoses or lesions. Warm and dry. HEAD: Atraumatic. Normocephalic. EYES: No scleral icterus. No injection or drainage. CARDIOVASCULAR: Normal rate with irregularly irregular rhythm without murmurs, gallops, or rubs. RESPIRATORY: Clear to auscultation. Breath sounds equal bilaterally. No wheezes , rales, or rhonchi. GASTROINTESTINAL: Nontender. Abdomen soft, nondistended. No guarding. MUSCULOSKELETAL: Trace edema right lower extremity. Improving edema left lower extremity. Negative Homans sign bilaterally. NEUROLOGICAL: Awake and alert. Motor grossly within normal limits. Normal speech. PSYCHIATRIC: Normal mood; Hospital Course 66-year-old female with: Epigastric pain: Patient reports epigastric tenderness radiating to the back states the feeling in the "pit" of her stomach feels similar to prior [place]. EKGs 4 personally interpreted with atrial fibrillation rate controlled, incomplete right bundle branch block, prolonged QT interval; septal T wave changes likely related to to incomplete right bundle branch block. No other ischemic changes noted. Deep q waves in lead III on first EKG. Aorta CTA negative for dissection. H/o CABG 02/2016 in [place]. -Nitro prn if has chest pain -Pepcid 20 bid with Maalox as needed for possible dyspepsia. (Received viscous lidocaine, Maalox, and 40 Protonix IV in the ED). -Telemetry -Cardiology consult appreciated. Negative Lexiscan. Continue Lopressor Acute on chronic CHF secondary to A. fib and MR: Chest x-ray personally interpreted with cardiomegaly and pulmonary vascular congestion. BNP 493. Lungs clear. H/o CABG 2015. -Improved switch to by mouth Lasix and monitor renal function -Echo with preserved systolic function A.Fib: Rate controlled on EKGs. Patient denies knowledge of having a history of A. fib. EITAN 2 DS VASC score of 4 -Telemetry -Continue warfarin. INR subtherapeutic. Pharmacy consulted to monitor. -continue therapeutic Lovenox for bridging. Leg swelling: Bilateral since CABG. Patient apparently had an ultrasound in [place] but it is unclear what that showed. D-dimer elevated. -Perform Doppler ultrasound bilaterally. Negative. Improving on diuresis Hypokalemia: Improved. Continue 20 mg twice a day -Monitor BMP Chronic medical problems include hypertension, anemia, CAD: Continue home medications. DVT prophylaxis: On Lovenox, coumadin Discharge Planning Stable for discharge when INR therapeutic or outpatient Lovenox can be arranged. Discussed with case management, needs prior approval. Request Form has been completed by me. I spent 35 minutes [id number] with the patient or on the molina discussing the patient's disposition, prognosis, and plan of care with patient's caregivers. Over half the time spent was devoted to counseling the patient regarding placement in coordinating care with caregivers and case management. Pt Condition on Discharge: Stable Discharge Disposition: Discharge Home Discharge Time: > 30 minutes Discharge Instructions DIET: Follow Instructions for: Heart Healthy Diet Activities you can perform: Regular-No Restrictions Activities to Avoid: Driving Follow up Referrals: PCP Follow-up - 1 Week New Orders: PT/INR New Medications: Enoxaparin Inj (Lovenox Inj) 150 Mg/Ml Syr 130 MG SQ Q12H Prevent Blood Clot #14 INJECTION Famotidine (Famotidine) 20 Mg Tab 20 MG PO BID Manage Heartburn #60 TAB Metoprolol Tartrate (Metoprolol Tartrate) 25 Mg Tab 25 MG PO Q12HR Regulate Heart Beat #60 TAB Potassium Chloride Microencaps (Potassium Chloride Microencaps) 20 Meq Tab 20 MEQ PO Q12HR Electrolyte Replacement #60 TAB Warfarin (Coumadin) 3 Mg Tab 3 MG PO DAILY@1600 Prevent Blood Clot #30 TAB Continued Medications: Amlodipine (Norvasc) 5 Mg Tab 5 MG PO DAILY Blood Pressure Management #30 Ref [address] (Ferrous Sulfate DR) 324 Mg Tabdr 324 MG PO DAILY Nutritional Supplement #30 Ref 0 TAB Folic Acid (Folic Acid) 400 Mcg Tab 400 MCG PO DAILY Nutritional Supplement Ref 0 TAB Furosemide (Furosemide) 40 Mg Tab 40 MG PO DAILY #30 Ref 0 TAB Simvastatin (Zocor) 40 Mg Tab 40 MG PO DAILY Cholesterol Management #30 Ref 0 TAB Kevin Ravi MD Dec 10, 2016 18:43
[2016-12-10 20:15] VITALS: BP 128/88; PULSE 72; RESP 18; TEMP 97.8; O2SAT 98
[2016-12-11] MEDS ORDERED: FUROSEMIDE 40 MG TAB PO SCH (09:00)
== END 2016-12-10 22:21 | disposition home or self-care (01) ==
LOC: PHEDDLT 01:55 → PH3B 02:00
PROVIDERS: ADMIT Internal Medicine; ATTEND Internal Medicine
DX: R07.89 Other chest pain (principal); I11.0 Hypertensive heart disease with heart failure; R10.13 Epigastric pain; I48.91 Unspecified atrial fibrillation; M79.89 Other specified soft tissue disorders; R79.1 Abnormal coagulation profile; I50.9 Heart failure, unspecified; I25.10 Atherosclerotic heart disease of native coronary artery without angina pectoris; D64.9 Anemia, unspecified; I25.2 Old myocardial infarction; K21.9 Gastro-esophageal reflux disease without esophagitis; Z95.1 Presence of aortocoronary bypass graft; Z95.5 Presence of coronary angioplasty implant and graft; Z96.653 Presence of artificial knee joint, bilateral; Z79.01 Long term (current) use of anticoagulants; Z23 Encounter for immunization
CPT/HCPCS: 71010; 71275; 74174; 78452; 80048; 80053; 81001; 82550; 82552; 83690; 83735; 83880; 84484; 85025; 85027; 85379; 85610; 85730; 90732; 93005; 93306; 93970; 96372; 96374; 96375; 96376; 99285; A9502; C9113; G0378; J1170; J1650; J1940; Q9967; 99281